=== PATIENT | female | born 1970 | race Caucasian/White ===

== ENCOUNTER 2016-04-27 13:57 | Emergency (ER) ==
[2016-04-27 14:01] VITALS: BP 173/93
[2016-04-27] MEDS ORDERED: ASPIRIN PO STA (14:02)
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
[2016-04-27 14:20] LABS: MANUAL DIFF NEEDED? NO
[2016-04-27 14:25] LABS: BASO% 0.7 % (0.0-0.8); EOS% 3.3 % (0.0-10.0); HEMATOCRIT 34.3 % (37.0-47.0); HEMOGLOBIN 11.1 g/dL (12.0-16.0); IMM GRAN# 0.02 X1000 (0.0-0.04); IMM GRAN% 0.3 % (0.0-0.5); INR 0.99 (0.86-1.15); LYMPH# 1.59 X1000 (1.2-3.4); LYMPH% 26.4 % (20.5-51.1); MCH 31.4 PG (27-31); MCHC 32.4 g/dL (33-37); MCV 96.9 FL (81-99); MONO# 0.59 X1000 (0.11-0.59); MONO% 9.8 % (1.7-9.3); MPV 11.4 FL (7.4-10.4); NEUT% 59.5 % (42.2-75.2); PLT 243 X1000 (130-400); PROTIME 13.4 Seconds (12.1-15.5); RBC 3.54 XMIL (4.2-5.4)
[2016-04-27 14:26] LABS: PTT PL 37.3 Seconds (22.6-43.9)
[2016-04-27 14:46] LABS: ALBUMIN 4.6 g/dL (3.5-5.0); CALCIUM 10.5 mg/dL (8.8-10.2); MAGNESIUM 1.9 mg/dL (1.5-2.7); POTASSIUM 4.7 mmol/L (3.5-5.1); TOTAL BILIRUBIN 0.3 mg/dL (0.20-1.00); TOTAL PROTEIN 7.9 g/dL (6.3-8.3)
--- NOTE | 2016-04-27 15:04 | Diag Imaging Result Document ---
PROCEDURE NAME: CHEST-2 VIEWS - 04/27/2016 FRONTAL AND LATERAL CHEST, 2 VIEWS: FINDINGS: Compared to 10/17/2015. The lungs are well expanded. The heart is not enlarged. The vessels are not distended. No pneumonia. No pleural effusions. No free air beneath the diaphragm. IMPRESSION: No acute abnormality.
--- NOTE | 2016-04-27 16:03 | EKG Report ---
Test Performed on : 04/27/2016 1:55:41 PM Test Reason : CHEST PAIN Blood Pressure : / mmHG Vent. Rate : 091 BPM Atrial Rate : 091 BPM P-R Int : 142 ms QRS Dur : 076 ms QT Int : 340 ms P-R-T Axes : 031 027 053 degrees QTc Int : 418 ms Normal sinus rhythm. Nonspecific T wave abnormality Abnormal ECG When compared with ECG of 23-NOV-2015 12:53, No significant change was found Unconfirmed Result
--- NOTE | 2016-04-27 18:48 | EKG Report ---
Test Performed on : 04/27/2016 4:17:14 PM Test Reason : REPEAT Blood Pressure : / mmHG Vent. Rate : 084 BPM Atrial Rate : 084 BPM P-R Int : 142 ms QRS Dur : 074 ms QT Int : 354 ms P-R-T Axes : 028 023 038 degrees QTc Int : 418 ms Normal sinus rhythm. Nonspecific T wave abnormality Abnormal ECG When compared with ECG of 27-APR-2016 13:55, (Unconfirmed) No significant change was found Unconfirmed Result
== END 2016-04-27 17:07 | disposition home or self-care (01) ==
LOC: P.ED 13:57
DX: R07.89 Other chest pain (principal); I10 Essential (primary) hypertension; R94.31 Abnormal electrocardiogram [ECG] [EKG]; R05 Cough; R09.3 Abnormal sputum; R06.02 Shortness of breath; K59.00 Constipation, unspecified; R19.7 Diarrhea, unspecified; R11.0 Nausea; E78.5 Hyperlipidemia, unspecified; Z85.528 Personal history of other malignant neoplasm of kidney; E11.9 Type 2 diabetes mellitus without complications; E07.9 Disorder of thyroid, unspecified; F31.9 Bipolar disorder, unspecified; Z79.899 Other long term (current) drug therapy; Z79.4 Long term (current) use of insulin
CPT/HCPCS: 71020; 80053; 82550; 83605; 83735; 83880; 84484; 85025; 85379; 85610; 85730; 87040; 93005; 99284

== ENCOUNTER 2016-08-17 10:28 | Inpatient (IN) ==
[2016-08-17] MEDS ORDERED: PHENERGAN IV ONE (11:03)
[2016-08-17] MEDS ORDERED: NS 1,000 ML IV ONE (11:03)
[2016-08-17] MEDS ORDERED: SODIUM CHLORIDE 0.9% INJ ONE (11:03)
[2016-08-17 11:17] LABS: MANUAL DIFF NEEDED? NO
[2016-08-17 11:21] LABS: BASO% 0.5 % (0.0-0.8); EOS# 0.18 X1000 (0.0-0.7); EOS% 1.8 % (0.0-10.0); HEMATOCRIT 40.3 % (37.0-47.0); HEMOGLOBIN 13.4 g/dL (12.0-16.0); LYMPH# 2.44 X1000 (1.2-3.4); LYMPH% 24.1 % (20.5-51.1); MCH 32.4 PG (27-31); MCHC 33.3 g/dL (33-37); MCV 97.6 FL (81-99); MONO# 0.73 X1000 (0.11-0.59); MONO% 7.2 % (1.7-9.3); MPV 11.8 FL (7.4-10.4); NEUT% 66.4 % (42.2-75.2); PLT 275 X1000 (130-400); RBC 4.13 XMIL (4.2-5.4)
[2016-08-17 11:22] LABS: URINE MICRO REVIEW NEEDED? NO; URINE SOURCE CLEAN CATCH
[2016-08-17 11:32] LABS: BILIRUBIN URINE NEGATIVE (NEGATIVE); BLOOD URINE NEGATIVE (NEGATIVE); COLOR YELLOW; GLUCOSE URINE NEGATIVE (NEGATIVE); LEUKOCYTES URINE SMALL (NEGATIVE); NITRITE URINE NEGATIVE (NEGATIVE); PROTEIN URINE 300 mg/dL (NEGATIVE); SP GRAVITY URINE 1.018; TURBIDITY URINE CLEAR (CLEAR); UR EPITHELIAL CELLS <10 /HPF (<10); URINE BACTERIA NEGATIVE /HPF; URINE CULTURE NEEDED? YES; URINE RBC <10 /HPF (<10); URINE WBC <10 /HPF (<10); UROBILINOGEN URINE NORMAL (NORMAL)
[2016-08-17 11:48] LABS: ALBUMIN 5.2 g/dL (3.5-5.0); CALCIUM 10.3 mg/dL (8.8-10.2); POTASSIUM 3.8 mmol/L (3.5-5.1); TOTAL BILIRUBIN 0.37 mg/dL (0.20-1.00); TOTAL PROTEIN 8.6 g/dL (6.3-8.3); UR AMPHETAMINES QUAL NONE DETECTED (NONE DETECT); UR BARBITUATES QUAL NONE DETECTED (NONE DETECT); UR CANNABINOIDS QUAL NONE DETECTED (NONE DETECT); UR COCAINE QUAL PRESUMPTIVE POSITIVE (NONE DETECT); UR METHADONE QUAL NONE DETECTED (NONE DETECT); UR OPIATES QUAL NONE DETECTED (NONE DETECT); UR OXYCODONE QUAL PRESUMPTIVE POSITIVE (NONE DETECT); UR PCP QUAL NONE DETECTED (NONE DETECT)
[2016-08-17 12:16] LABS: UR BENZODIAZEPIN QUAL PRESUMPTIVE POSITIVE (NONE DETECT)
[2016-08-17 12:26] LABS: FREE T4 0.72 ng/dL (0.93-1.70)
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
[2016-08-17] MEDS ORDERED: NS 1,000 ML IV SCH (18:35)
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
[2016-08-17] MEDS ORDERED: PHENERGAN PO PRN (20:06)
[2016-08-17] MEDS: HUMALOG DOSE (PARKWAY) SUBQ SCH ×2 (20:21→21:39)
[2016-08-18] MEDS: HUMALOG DOSE (PARKWAY) SUBQ SCH (06:33)
[2016-08-18 06:38] LABS: CALCIUM 9.2 mg/dL (8.8-10.2); POTASSIUM 3.6 mmol/L (3.5-5.1)
[2016-08-18 06:41] LABS: HEMOGLOBIN A1C 7.3 % (4.8-6.0)
[2016-08-18] MEDS ORDERED: PRILOSEC PO SCH (07:00)
[2016-08-18 07:03] LABS: HEMATOCRIT 31.1 % (37.0-47.0); HEMOGLOBIN 10.2 g/dL (12.0-16.0); MCH 31.7 PG (27-31); MCHC 32.8 g/dL (33-37); MCV 96.6 FL (81-99); MPV 11.8 FL (7.4-10.4); RBC 3.22 XMIL (4.2-5.4)
[2016-08-18 07:29] VITALS: BP 123/97
[2016-08-18] MEDS ORDERED: SYNTHROID PO SCH (07:30)
--- NOTE | 2016-08-18 07:46 | EKG Report ---
Test Performed on : 08/17/2016 10:39:47 AM Test Reason : No Order in [employer] Blood Pressure : / mmHG Vent. Rate : 106 BPM Atrial Rate : 106 BPM P-R Int : 134 ms QRS Dur : 080 ms QT Int : 332 ms P-R-T Axes : 031 033 249 degrees QTc Int : [address] \T\ T wave abnormality, consider inferolateral ischemia Abnormal ECG When compared with ECG of 09-AUG-2016 22:00, Vent. rate has increased BY [address] now depressed in Lateral leads T wave inversion now evident in Inferior leads Inverted T waves have replaced nonspecific T wave abnormality in Lateral leads Unconfirmed Result
[2016-08-18] MEDS ORDERED: XARELTO PO SCH (09:00)
--- NOTE | 2016-09-08 11:45 | DISCHARGE SUMMARY ---
ADMISSION DATE: 08/17/2016 DISCHARGE DATE: 08/18/2016 DISCHARGE DIAGNOSES: 1. Patient left AMA without being seen by our service. She was seen at [facility] with an intentional drug overdose. She was stabilized and transferred to the [facility] ICU; however, however in the middle of night she left against medical advice. 2. Diabetes. 3. Hypothyroidism. 4. Bipolar disorder. CONSULTATIONS: None. PROCEDURES: None. BRIEF HOSPITAL COURSE: A 46-year-old female, who was admitted at [facility], was stabilized as noted by their HPI then subsequently transferred to [facility]'s ICU for further observation. She left without medical advice from [facility] [facility] ICU without being seen. cc: Gamaliel Ennis MD
== END 2016-08-18 08:01 | disposition left against medical advice (07) ==
LOC: ED 10:28 → SUATTDRO 15:42 → EDIPHOLD 15:42 → P.ICU 16:53
PROVIDERS: ATTEND Family Medicine

== ENCOUNTER 2016-11-04 11:24 | Inpatient (IN) ==
[2016-11-04] MEDS ORDERED: ASPIRIN PO STA (11:33)
[2016-11-04 11:59] LABS: MANUAL DIFF NEEDED? NO
[2016-11-04 12:13] LABS: BASO% 0.5 % (0.0-0.8); EOS# 0.11 X1000 (0.0-0.7); EOS% 1.8 % (0.0-10.0); HEMATOCRIT 37.7 % (37.0-47.0); HEMOGLOBIN 12.8 g/dL (12.0-16.0); IMM GRAN# 0.02 X1000 (0.0-0.04); IMM GRAN% 0.3 % (0.0-0.5); LYMPH% 23.4 % (20.5-51.1); MCH 32.2 PG (27-31); MCV 94.7 FL (81-99); MONO# 0.43 X1000 (0.11-0.59); MONO% 7.2 % (1.7-9.3); MPV 12.4 FL (7.4-10.4); NEUT% 66.8 % (42.2-75.2); PLT 226 X1000 (130-400); RBC 3.98 XMIL (4.2-5.4)
[2016-11-04 12:18] LABS: INR 1.19; PROTIME 12.6 Seconds (9.2-11.7)
[2016-11-04 12:22] LABS: PTT 41.8 Seconds (22.0-36.0)
[2016-11-04 13:27] LABS: ALBUMIN 4.8 g/dL (3.5-5.0); CALCIUM 10.6 mg/dL (8.8-10.2); MAGNESIUM 1.6 mg/dL (1.5-2.7); POTASSIUM 4.4 mmol/L (3.5-5.1); TOTAL BILIRUBIN 0.14 mg/dL (0.20-1.00); TOTAL PROTEIN 8.8 g/dL (6.3-8.3)
[2016-11-04] MEDS ORDERED: NITROGLYCERIN TOP ONE (15:41)
[2016-11-04] MEDS ORDERED: ZOFRAN IV ONE (15:41)
[2016-11-04] MEDS ORDERED: NS 1,000 ML IV ONE (15:41)
[2016-11-04] MEDS ORDERED: SODIUM CHLORIDE 0.9% INJ ONE (17:35)
[2016-11-04] MEDS ORDERED: PHENERGAN IV ONE (17:35)
[2016-11-04] MEDS ORDERED: PHENERGAN ONE (17:37)
[2016-11-04] MEDS ORDERED: SODIUM CHLORIDE 0.9% 10 ML ONE (17:38)
[2016-11-04 17:40] LABS: URINE MICRO REVIEW NEEDED? NO; URINE SOURCE CLEAN CATCH
[2016-11-04 17:50] LABS: BILIRUBIN URINE NEGATIVE (NEGATIVE); BLOOD URINE NEGATIVE (NEGATIVE); COLOR YELLOW; GLUCOSE URINE 500 mg/dL (NEGATIVE); LEUKOCYTES URINE MODERATE (NEGATIVE); NITRITE URINE NEGATIVE (NEGATIVE); PROTEIN URINE 300 mg/dL (NEGATIVE); SP GRAVITY URINE 1.015; TURBIDITY URINE CLEAR (CLEAR); UROBILINOGEN URINE NORMAL (NORMAL)
[2016-11-04 17:51] LABS: UR EPITHELIAL CELLS <10 /HPF (<10); URINE BACTERIA NEGATIVE /HPF; URINE CULTURE NEEDED? YES; URINE RBC <10 /HPF (<10)
[2016-11-04 17:56] VITALS: BP 161/99
[2016-11-04 17:57] LABS: UR AMPHETAMINES QUAL NONE DETECTED (NONE DETECT); UR BARBITUATES QUAL NONE DETECTED (NONE DETECT); UR BENZODIAZEPIN QUAL NONE DETECTED (NONE DETECT); UR CANNABINOIDS QUAL NONE DETECTED (NONE DETECT); UR COCAINE QUAL NONE DETECTED (NONE DETECT); UR METHADONE QUAL NONE DETECTED (NONE DETECT); UR OPIATES QUAL PRESUMPTIVE POSITIVE (NONE DETECT); UR OXYCODONE QUAL NONE DETECTED (NONE DETECT); UR PCP QUAL NONE DETECTED (NONE DETECT)
[2016-11-04] MEDS ORDERED: NS 1,000 ML IV SCH (18:43)
[2016-11-04] MEDS ORDERED: TYLENOL PO PRN (19:15)
[2016-11-04] MEDS ORDERED: SEROQUEL PO SCH (21:00)
[2016-11-04] MEDS ORDERED: LAMICTAL PO SCH (21:00)
[2016-11-05] MEDS ORDERED: ASPIRIN PO SCH (09:00)
[2016-11-05] MEDS ORDERED: LOPID PO SCH (09:00)
[2016-11-05] MEDS ORDERED: XARELTO PO SCH (09:00)
[2016-11-05] MEDS ORDERED: SYNTHROID PO SCH (09:00)
== END 2016-11-04 20:20 | disposition left against medical advice (07) ==
LOC: ED 11:24 → EDIPHOLD 18:58
PROVIDERS: ATTEND Internal Medicine